=== PATIENT | female | born 1950 | race Caucasian/White ===

== ENCOUNTER 2017-08-31 14:24 | Emergency (ER) | payer OTHER ==
[2017-08-31 15:05] VITALS: BP 143/67
--- NOTE | 2017-08-31 15:52 | UC ---
FLU HPI - HPI Summary HPI Summary: Pt presents with c/o fever, cough, chest congestion, intermittent chest pain nasal congestion that began 1 week ago and has since resolved. Pt also reports that she had 2 to 3 episodes of left hip pain and weakness that happened 1 week ago and has since resolved. Pt is currently being treated for breast cancer. Pt is unaware of chemotherapy drugs or stage of cancer, or ER/CO, Her 2 status. Pt had cycle 1 of chemo on 2017. Had power port placed on Aug 19. Pt is due for chemotherapy cycle 2 on 09/04/17 - History of Current Complaint Hx Obtained From: Patient ?: No Onset/Duration: Sudden Onset, Lasting Days, Resolved Severity Currently: None Severity Initially: Moderate Associated Signs & Symptoms: Positive: Fever, Myalgia, Cough, Nasal Congestion Related Hx: Possible Flu/Infectious Exposure <Yolanda Navarro NP - Last Filed: 08/31/17 16:39> <Laury Ellison - Last Filed: 08/31/17 17:57> - History of Current Complaint Chief Complaint: UCGeneralIllness Stated Complaint: FEVER RUNNY NOSE/LEFT LEG PAIN Time Seen by Provider: 08/31/17 14:40 - Allergy/Home Medications Allergies/Adverse Reactions: Allergies Allergy/AdvReac Type Severity Reaction Status Date / Time Adhesive Tape Allergy Itching Verified 08/31/17 15:05 Home Medications: Home Medications Aleve 220mg 220 mg PO SEE INSTRUCTIONS PRN 08/31/17 [History Confirmed 08/31/17] Aspirin [Aspirin Adult Low Dose 81 MG] 81 mg PO DAILY 08/31/17 [History Confirmed 08/31/17] Blood Pressure Med 2 tab PO DAILY 08/31/17 [History Confirmed 08/31/17] Docusate Sodium [Stool Softener] 200 mg PO BID 08/31/17 [History Confirmed 08/31] Prochlorperazine TAB* [Compazine Tab*] 10 mg PO Q6H PRN 08/31/17 [History Confirmed 08/31/17] Simvastatin [Zocor 40 MG (NF)] 20 mg PO QPM 08/31/17 [History Confirmed 08/31/17 ] PMH/Surg Hx/FS Hx/Imm Hx Previously Healthy: No Cancer History: Breast Cancer - curent treatment, has completed cycle 1 on or 6 or 8 cycles. - Surgical History Surgical History: Yes Surgery Procedure, Year, and Place: B/L lumpectomies and nodes - Family History Known Family History: Positive: Cardiac Disease - Social History Occupation: Retired Alcohol Use: Occasionally Substance Use Type: None Smoking Status (MU): Never Smoked Tobacco Have You Smoked in the Last Year: No - Immunization History Most Recent Influenza Vaccination: does not giet <Yolanda Navarro NP - Last Filed: 08/31/17 16:39> Review of Systems Constitutional: Fever - resolved, Fatigue Skin: Negative Eyes: Negative ENT: Sore Throat - resolved, Sinus Congestion - resolved Respiratory: Cough - resolved Cardiovascular: Chest Pain - resolved Gastrointestinal: Negative Genitourinary: Negative Motor: Negative Neurovascular: Negative Musculoskeletal: Arthralgia - left hip, resolved, Myalgia - left hip resolved Neurological: Negative Psychological: Negative Is Patient Immunocompromised?: No All Other Systems Reviewed And Are Negative: Yes <Yolanda Navarro NP - Last Filed: 08/31/17 16:39> Physical Exam Triage Information Reviewed: Yes Appearance: Well-Appearing Vital Signs: Initial Vital Signs Temp 98.5 F 08/31/17 14:40 Pulse 62 08/31/17 14:40 Resp 18 08/31/17 14:40 BP 143/67 08/31/17 14:40 Pulse Ox 97 08/31/17 14:40 Vital Signs Reviewed: Yes Eye Exam: Normal ENT Exam: Normal Dental Exam: Normal Dental: Positive: Other: - missing several bottom teeth Neck exam: Normal Respiratory Exam: Normal Cardiovascular Exam: Normal Musculoskeletal Exam: Normal Neurological Exam: Normal Psychological Exam: Normal Skin Exam: Other - healing surgical scar, left anterior upper chest wall. covered in saran wrap with emla cream non tender, mild erythema, no discharge <Yolanda Navarro NP - Last Filed: 08/31/17 16:39> Vital Signs: Initial Vital Signs Temp 98.5 F 08/31/17 14:40 Pulse 62 08/31/17 14:40 Resp 18 08/31/17 14:40 BP 143/67 08/31/17 14:40 Pulse Ox 97 08/31/17 14:40 <Laury Ellison - Last Filed: 08/31/17 17:57> Flu Course/Dx - Differential Dx/Diagnosis Differential Diagnosis/HQI/PQRI: Influenza, Upper Respiratory Infection Provider Diagnoses: viral syndrome <Yolanda Navarro NP - Last Filed: 08/31/17 16:39> Discharge <Yolanda Navarro NP - Last Filed: 08/31/17 16:39> <Laury Ellison - Last Filed: 08/31/17 17:57> - Discharge Plan Condition: Stable Disposition: HOME Patient Education Materials: Viral Syndrome (ED) Referrals: SAMANTHA Valero [Primary Care Provider] - If Needed Joey BIRD,Abram [Medical Doctor] - As Soon As Possible Additional Instructions: Please follow up with your PCP and your oncologist as needed. Please alert your oncologist of your visit here and if your symptoms worsen please seek care immediately at your closest Emergency Room. Asthma HPI <Yolanda Navarro NP - Last Filed: 08/31/17 16:39> - HPI Summary HPI Summary: Pt presents with c/o fever, cough, chest congestion, intermittent chest pain nasal congestion that began 1 week ago and has since resolved. Pt also reports that she had 2 to 3 episodes of left hip pain and weakness that happened 1 week ago and has since resolved. Pt is currently being treated for breast cancer. Pt is unaware of chemotherapy drugs or stage of cancer, or ER/CO, Her 2 status. Pt had cycle 1 of chemo on 2017. Had power port placed on Aug 19. Pt is due for chemotherapy cycle 2 on 09/04/17 - History of Current Complaint Hx Obtained From: Patient ?: No Onset/Duration: Sudden Onset, Lasting Days, Resolved Pain Intensity: 0 Pain Scale Used: 0-10 Numeric <Laury Ellison - Last Filed: 08/31/17 17:57> - History of Current Complaint Chief Complaint: UCGeneralIllness Stated Complaint: FEVER RUNNY NOSE/LEFT LEG PAIN Time Seen by Provider: 08/31/17 14:40 - Allergy/Home Medications Allergies/Adverse Reactions: Allergies Allergy/AdvReac Type Severity Reaction Status Date / Time Adhesive Tape Allergy Itching Verified 08/31/17 15:05 Home Medications: Home Medications Aleve 220mg 220 mg PO SEE INSTRUCTIONS PRN 08/31/17 [History Confirmed 08/31/17] Aspirin [Aspirin Adult Low Dose 81 MG] 81 mg PO DAILY 08/31/17 [History Confirmed 08/31/17] Blood Pressure Med 2 tab PO DAILY 08/31/17 [History Confirmed 08/31/17] Docusate Sodium [Stool Softener] 200 mg PO BID 08/31/17 [History Confirmed 08/31] Prochlorperazine TAB* [Compazine Tab*] 10 mg PO Q6H PRN 08/31/17 [History Confirmed 08/31/17] Simvastatin [Zocor 40 MG (NF)] 20 mg PO QPM 08/31/17 [History Confirmed 08/31/17 ] Attestation Statement User Type: Provider - I was available for consult. This patient was seen by the [facility]. The patient was not presented to, seen by, or examined by me. -Yasmin <Laury Ellison - Last Filed: 08/31/17 17:57>
--- NOTE | 2017-08-31 15:59 | RAD ---
HISTORY: Cough, pain COMPARISONS: None VIEWS: 4: Frontal dual-energy and lateral views of the chest. FINDINGS: CARDIOMEDIASTINAL SILHOUETTE: The cardiomediastinal silhouette is normal. LIZZY: The lizzy are normal. PLEURA: The costophrenic angles are sharp. No pleural abnormalities are noted. LUNG PARENCHYMA: The lungs are clear. ABDOMEN: The upper abdomen is clear. There is no subphrenic gas. BONES AND SOFT TISSUES: No bone or soft tissue abnormalities are noted. OTHER: A left-sided chest port is noted from a left internal jugular vein approach with the tip overlying the superior vena cava. Surgical clips overlie the right axilla. IMPRESSION: NO ACTIVE CARDIOPULMONARY DISEASE.
== END 2017-08-31 16:06 | disposition home or self-care (01) ==
LOC: UCCORT 14:24
DX: B34.9 Viral infection, unspecified (principal); C50.919 Malignant neoplasm of unspecified site of unspecified female breast; Z92.21 Personal history of antineoplastic chemotherapy; Z72.89 Other problems related to lifestyle
CPT/HCPCS: 71046; 87502; 93005; 99211; G0463